=== PATIENT | male | born 1940 | race Caucasian/White ===

== ENCOUNTER 2016-07-04 20:37 | Inpatient (IN) | payer MEDICARE, MEDICAID ==
[~2016-07-04] VITALS: Ht 172.7 cm; Wt 74.8 kg
[~2016-07-04 20:37] MED LIST: ASPI81TA2 PO; CALC500T29 PO; CLOP75TA2 PO; ESOM40CA PO; FENO160T PO; METO-304 PO; OMEG1CAP55 PO; PRAV80TA21 PO; PREG50CA PO; SITA1TAB6 PO; TAMS0.4C34 PO; VALS80TA2 PO
--- NOTE | 2016-07-04 20:48 | NUR ---
DR. DE AWARE PT BS NOTED AT 346.
--- NOTE | 2016-07-04 20:48 | NUR ---
BB FAMILY FOR GENERALIZED WEAKENSS, CONFUSION SINCE HE WOKE UP TODAY. PT AOX3 DANISH SPEAKING, DAUGHTERS AT BEDSIDE FOR TRANSLATION. RR EVEN AND UNLABORED. NO SOB NOTED. NAD NOTE. NO NVD AT THIS TIME. PT GOWNED AND PLACED ON MONITOR.
[2016-07-04] MEDS ORDERED: ACETAMINOPHEN 650 MG/20.3 ML UDC PO ONE (21:00)
[2016-07-04] MEDS ORDERED: ACETAMINOPHEN 650 MG/20.3 ML UDC ONE (21:13)
[2016-07-04 21:20] LABS: CALCIUM, SERUM 8.8 mg/dL (8.5-10.1); CARBON DIOXIDE 23 mmol/L (21-32); CHLORIDE 96 mmol/L (98-107); CREATININE 2.2 mg/dL (0.6-1.3); GLUCOSE 337 mg/dL (74-106); POTASSIUM 4.9 mmol/L (3.5-5.1); SODIUM SERUM 130 mmol/L (136-145); UREA NITROGEN, BLOOD 29 mg/dL (7-18)
[2016-07-04 21:25] LABS: INR 1.08 (0.87-1.13); PROTHROMBIN TIME 11.2 SECS (9.5-12.7)
[2016-07-04 21:26] LABS: ALANINE AMINOTRANSFERASE 13 U/L (12-78); ALBUMIN 2.7 g/dL (3.4-5.0); ALKALINE PHOSPHATASE 34 U/L (46-116); ASPARTATE AMINOTRANSFERASE 18 U/L (15-37); BILIRUBIN,DIRECT 0.1 mg/dL (0.0-0.2); BILIRUBIN,TOTAL 0.4 mg/dL (0.2-1.0); TOTAL PROTEIN, SERUM 7.8 g/dL (6.4-8.2)
[2016-07-04 21:28] LABS: TROPONIN I < 0.017 ng/mL (0.00-0.056)
--- NOTE | 2016-07-04 21:28 | NUR ---
NEMESIO GARCIA AT BEDSIDE FOR EVAL.
[2016-07-04 21:40] LABS: LACTIC ACID 1.5 mmol/L (0.4-2.0)
--- NOTE | 2016-07-04 21:40 | NUR ---
PT ASSIGNED TO TELE BED 109 FOR SEPSIS
--- NOTE | 2016-07-04 21:40 | NUR ---
XRAY AT BEDSIDE
--- NOTE | 2016-07-04 21:45 | NUR ---
URINE COLLECTED. CALLED LAB FOR RETAIL SALES CLERK.
[2016-07-04 21:55] LABS: EOSINOPHILS # (AUTO) 0.3 /CMM (0.0-0.7); EOSINOPHILS % (AUTO) 0.3 % (0.0-6.0); HEMATOCRIT 29 % (39-51); HEMOGLOBIN 8.7 g/dL (13.5-17.5); LYMPHOCYTES # (AUTO) 3.7 /CMM (0.8-4.8); LYMPHOCYTES % (AUTO) 4.2 % (20.0-44.0); MEAN CORPUSCULAR HEMOGLOBIN 27 PG (26.0-33.0); MEAN CORPUSCULAR HGB CONC 30 g/dl (31.0-36.0); MEAN CORPUSCULAR VOLUME 88 fL (80-96); MONOCYTES # (AUTO) 0.5 /CMM (0.1-1.30); MONOCYTES % (AUTO) 0.5 % (2.0-12.0); PLATELET COUNT (AUTO) 77 /CMM (150-450); RDW COEFFICIENT OF VARIATION 17.1 (11.5-15.0); RED BLOOD CELL COUNT(AUTO) 3.27 MIL/uL (4.5-6.0)
[2016-07-04 21:58] LABS: WHITE BLOOD COUNT (AUTO) 89.4 K/uL (4.3-11.0)
[2016-07-04] MEDS ORDERED: PIPERACILLIN /TAZOBACTAM 2.25 G VIAL IV ONE (21:59)
[2016-07-04 22:00] LABS: BAND % (MANUAL) 2 % (0.0-5.0); LYMPHOCYTES % (MANUAL) 9 % (16-48); MONOCYTES % (MANUAL) 3 % (0-11.0); NEUTROPHILS % (MANUAL) 86 (42-76); PLATELET ESTIMATE DECREASED
[2016-07-04] MEDS ORDERED: IV D5W 50 ML IV ONE (22:00)
[2016-07-04] MEDS ORDERED: VANCOMYCIN 1 GM in IV D5W 250 ML IV SCH (22:00)
[2016-07-04] MEDS ORDERED: IV SET PRIMARY PUMP SET 1 EA INFUS.SET MC ONE ×2 (22:00→23:26)
[2016-07-04 22:02] LABS: ANISOCYTOSIS 1+
--- NOTE | 2016-07-04 22:06 | NUR ---
REPORT GIVEN TO BENTLEY/JORDY.
[2016-07-04] MEDS: PIPERACILLIN /TAZOBACTAM 2.25 G in IV D5W 50 ML IV SCH (22:08)
[2016-07-04] MEDS ORDERED: IV NS 0.9% 1,000 ML IV PRN (22:12)
[2016-07-04] MEDS ORDERED: SITA50TA PO (22:14)
[2016-07-04] MEDS ORDERED: CALC-746 PO (22:14)
[2016-07-04] MEDS ORDERED: PREG50CA PO (22:14)
[2016-07-04] MEDS ORDERED: GLIP5TAB21 PO (22:14)
[2016-07-04] MEDS ORDERED: ALEN70TA45 PO (22:14)
[2016-07-04] MEDS ORDERED: ZOLP5TAB7 PO (22:14)
[2016-07-04] MEDS ORDERED: CANA300T PO (22:14)
[2016-07-04] MEDS ORDERED: FENO145T20 PO (22:14)
[2016-07-04] MEDS ORDERED: NIAC-5 PO (22:14)
[2016-07-04 22:15] VITALS: BP 110/47
--- NOTE | 2016-07-04 22:15 | NUR ---
PT TRASNFERED PER ACLS PROTOCOL.
[2016-07-04 22:25] VITALS: BP 110/47
[2016-07-04] MEDS ORDERED: DEXTROSE 50%-WATER 50 ML DISP.SYRIN IV PRN (22:30)
[2016-07-04] MEDS ORDERED: ONDANSETRON HCL/PF 4 MG/2 ML VIAL IVP PRN (22:30)
[2016-07-04] MEDS ORDERED: TEMAZEPAM 15 MG CAPSULE PO PRN (22:30)
[2016-07-04] MEDS ORDERED: MAG HYDROX/AL HYDROX/SIMETH 30 ML UDC PO PRN (22:30)
[2016-07-04] MEDS ORDERED: MAGNESIUM HYDROXIDE 30 ML UDC PO PRN (22:30)
[2016-07-04 22:38] LABS: APPEARANCE,URINE CLEAR (CLEAR); BILIRUBIN,URINE NEGATIVE (NEGATIVE); BLOOD, URINE TRACE Ery/uL (NEGATIVE); COLOR,URINE YELLOW (YELLOW); KETONES,URINE NEGATIVE (NEGATIVE); LEUKOCYTE ESTERASE ,URINE NEGATIVE (NEGATIVE); NITRITE, URINE NEGATIVE (NEGATIVE); PH,URINE 5.5 (5.0-8.0); PROTEIN,URINE TRACE mg/dl (NEGATIVE); UGLUCOSE 3+ mg/dL (NEGATIVE); UROBILINOGEN,URINE 0.2 EU/dL (0.2)
[2016-07-04 22:44] LABS: ADD URINE CULTURE YES; SQUAMOUS EPITHELIAL CELL,UR Few /HPF (None Seen); WBC,URINE 15-20 /HPF (0-3); YEAST,URINE Moderate /HPF (None Seen)
[2016-07-04 22:45] LABS: MUCUS,URINE Few /LPF (None Seen)
[2016-07-04 22:46] LABS: BACTERIA,URINE 1+ /HPF (None Seen)
--- NOTE | 2016-07-04 23:19 | NUR ---
HOGSHEAD STRIPPER NOTE ADMITTED 76 YEARS OLD MALE PT FROM ER WITH THE DX OF [facility] ACQUIRED BY NEMESIO FREEMAN. A/O X 3 ROMANSH SPEAKING. CONFUSED AT TIME. DTR PROVIDED THE HX. NO SOB, NO DISTRESS OR DISCOMFORT NOTED. DENIES PAIN. ON TELE V PACING HR 88 . H/L RT WRIST # 18 G INTACT AND PATENT. ADMITTING ORDERS CHECKED. DTR AT BED SIDE TRANSLATED TO THE PT. SKIN ASSESSMENT DONE. PICTURES TAKEN AND PLACE THEM IN THE CHART. VSS. SIDE RAILS UP X 2 AND CALL LIGHT WITHIN REACH. CONTINUE TO MONITOR HIM.
[2016-07-04] MEDS ORDERED: VANCOMYCIN 1 GM VIAL ONE (23:25)
[2016-07-04] MEDS ORDERED: IV NS 0.9% 1,000 ML ONE (23:26)
[2016-07-04] MEDS ORDERED: SECONDARY IV SET 1 EA INFUS.SET MC ONE (23:26)
[2016-07-04] MEDS ORDERED: IV D5W 250 ML IV ONE (23:26)
[2016-07-05] VITALS: BP 111/42
[2016-07-05] MEDS ORDERED: PIPERACILLIN /TAZOBACTAM 2.25 G in IV D5W 50 ML IV SCH ×2
[2016-07-05] MEDS: INSULIN REGULAR, HUMAN 100 UNIT/ML 3 ML VIAL SQ PRN ×4 (00:45→22:15)
--- NOTE | 2016-07-05 00:50 | NUR ---
DOG CATCHER NOTE CHEMICAL PREPARER LYDIA INFORMED THAT PT BS WAS HIGH IN ER AND NO INSULIN GIVEN. LYDIA CHEMICAL PREPARER GAVE ORDER TO CHECK NOW AND COVER WITH HUMULIN R INSULIN PER SLIDING SCALE. BS CHECKED 396, 10 UNITS OF HUMULIN R INSULIN SQ GIVEN.
[2016-07-05 04:00] VITALS: BP 98/51
[2016-07-05] MEDS ORDERED: PIPERACILLIN /TAZOBACTAM 2.25 G VIAL IV ONE (04:31)
[2016-07-05] MEDS ORDERED: IV D5W 50 ML IV ONE (04:32)
[2016-07-05] MEDS ORDERED: SECONDARY IV SET 1 EA INFUS.SET MC ONE (04:32)
[2016-07-05] MEDS: PIPERACILLIN /TAZOBACTAM 2.25 G in IV D5W 50 ML IV SCH ×4 (05:12→23:27)
[2016-07-05] MEDS: BLOOD SUGAR DIAGNOSTIC 1 EACH STRIP IN SCH ×4 (05:39→22:13)
--- NOTE | 2016-07-05 05:45 | NUR ---
MS RN NOTE BLOODSUGAR 128, NO INSULIN COVERAGE GIVEN. ALSO ZOSYN 2.25 G IV ATB GIVEN ORDERED. PT IN NO DISTRESS OR DISCOMFORT.
--- NOTE | 2016-07-05 06:36 | NUR ---
MOTO MIX OPERATOR NOTE PT IN BED ASLEEP, AROUSABLE. NO DISTRESS OR DISCOMFORT NOTED. DENIES PAIN. ON TELE V PACING HR 89. DTR AT BED SIDE. SIDE RAILS UP X 2 AND CALL LIGHT WITHIN REACH. WILL ENDORSE TO DAY SHIFT NURSE FOR CONTINUE TO CARE.
[2016-07-05 06:39] LABS: HEMATOCRIT 29 % (39-51); HEMOGLOBIN 8.9 g/dL (13.5-17.5); LYMPHOCYTES # (AUTO) 4.2 /CMM (0.8-4.8); LYMPHOCYTES % (AUTO) 5.5 % (20.0-44.0); MEAN CORPUSCULAR HEMOGLOBIN 27 PG (26.0-33.0); MEAN CORPUSCULAR HGB CONC 31 g/dl (31.0-36.0); MEAN CORPUSCULAR VOLUME 88 fL (80-96); MONOCYTES # (AUTO) 0.1 /CMM (0.1-1.30); MONOCYTES % (AUTO) 0.1 % (2.0-12.0); NEUTROPHILS # (AUTO) 72.4 /CMM (1.8-8.9); NEUTROPHILS % (AUTO) 94.4 % (43.0-81.0); PLATELET COUNT (AUTO) 87 /CMM (150-450); RDW COEFFICIENT OF VARIATION 16.6 (11.5-15.0); RED BLOOD CELL COUNT(AUTO) 3.29 MIL/uL (4.5-6.0)
[2016-07-05 06:51] LABS: ALBUMIN 2.6 g/dL (3.4-5.0); BILIRUBIN,DIRECT 0.1 mg/dL (0.0-0.2); BILIRUBIN,TOTAL 0.4 mg/dL (0.2-1.0); CALCIUM, SERUM 8.8 mg/dL (8.5-10.1); MAGNESIUM 2.4 mg/dL (1.8-2.4); PHOSPHORUS 3.6 mg/dL (2.5-4.9); POTASSIUM 3.8 mmol/L (3.5-5.1); TOTAL PROTEIN, SERUM 7.7 g/dL (6.4-8.2)
[2016-07-05 06:55] LABS: WHITE BLOOD COUNT (AUTO) 76.7 K/uL (4.3-11.0)
--- NOTE | 2016-07-05 07:00 | NUR ---
COUNTY ATTORNEY NOTE TAPPING MACHINE OPERATOR AUTOMATIC SANDRA GAVE CRITICAL LAB RESULT OF WBC 76.7 FROM 89.4. ENDORSE TO DAY SHIFT NURSE TO F/U.
[2016-07-05 07:06] LABS: THYROID STIMULATING HORMONE 1.763 uIU/mL (0.358-3.74)
--- NOTE | 2016-07-05 07:10 | NUR ---
RN INITIAL NOTE RECEIVED PT FROM PM NURSE. PT A/O X2 PERSIAN SPEAKING. PT ON 2L NC NO C/O ACUTE SOB. IV R WRIST FLUSHED, PATENT AND INTACT#18G NS @ 75 ML/HR. WILL CONTINUE TO MONITOR CLOSELY. PT WARM CLEAN AND DRY. DAUGHTER @ BEDSIDE.
[2016-07-05 08:00] VITALS: BP_SYST 121; BP_SYST 140; BP_SYST 98; BP_DIAS 49; BP_DIAS 51; BP_DIAS 59
[2016-07-05] MEDS ORDERED: FEE PK DOSING 1 MIN EA MC ONE (08:38)
[2016-07-05] MEDS: TAMSULOSIN 0.4 MG CAP.SR.24H PO SCH (08:55)
[2016-07-05] MEDS: PANTOPRAZOLE 40 MG TABLET.DR PO SCH (08:56)
[2016-07-05] MEDS: CALCIUM CARBONATE (1250) 500 MG TABLET PO SCH ×3 (08:56→17:01)
[2016-07-05] MEDS: METOPROLOL SUCCINATE 50 MG TAB.SR.24H PO SCH (08:57)
[2016-07-05] MEDS ORDERED: NIACIN 250 MG TABLET.SA PO SCH (09:00)
[2016-07-05] MEDS ORDERED: CLOPIDOGREL BISULFATE 75 MG TABLET PO SCH (09:00)
[2016-07-05] MEDS ORDERED: FENOFIBRATE NANOCRYS (145 MG) 145 MG TABLET PO SCH (09:00)
[2016-07-05] MEDS ORDERED: VALSARTAN 80 MG TABLET PO SCH (09:00)
[2016-07-05] MEDS ORDERED: ASPIRIN 81 MG TAB.CHEW PO SCH (09:00)
[2016-07-05 09:26] LABS: BAND % (MANUAL) 7 % (0.0-5.0); BLASTS, MANUAL % 2 % (0-0); LYMPHOCYTES % (MANUAL) 5 % (16-48); METAMYELOCYTES % 2 % (0-0); MONOCYTES % (MANUAL) 1 % (0-11.0); MYELOCYTES % 1 % (0-0)
[2016-07-05 09:28] LABS: ANISOCYTOSIS 2+; PLATELET ESTIMATE DECREASED
[2016-07-05 09:29] LABS: NEUTROPHILS % (MANUAL) 82 (42-76)
[2016-07-05 10:52] LABS: IRON, SERUM 24 ug/dl (50-175); TOTAL IRON BINDING CAPACITY 368 ug/dl (250-450)
[2016-07-05 10:56] LABS: TROPONIN I < 0.017 ng/mL (0.00-0.056)
[2016-07-05 11:24] LABS: FERRITIN 57 ng/mL (8-388); THYROID STIMULATING HORMONE 1.849 uIU/mL (0.358-3.74)
[2016-07-05] MEDS ORDERED: BUMETANIDE INJ 0.25 MG/ML VIAL IV ONE (12:30)
[2016-07-05 14:41] VITALS: BP 121/49
--- NOTE | 2016-07-05 15:49 | NUR ---
RN NOTE SPOKE TO DR. REYNOLDS DAUGHTER ADIA VASQUEZ WANTS PT TO BE PLACE ON DNR DNI CODE STATUS. POLST WITNESSED WITH RASHAWN KIM RN AND FORM PLACED IN CHART. DR. REYNOLDS WILL CHANGE STATUS IN COMPUTER.
[2016-07-05 16:00] VITALS: BP 105/56
[2016-07-05 16:13] LABS: URIC ACID 5.4 mg/dL (2.6-7.2)
[2016-07-05] MEDS: HYDROXYUREA 500 MG CAPSULE PO SCH (17:01)
[2016-07-05] MEDS: ALLOPURINOL 100 MG TABLET PO SCH (17:01)
--- NOTE | 2016-07-05 17:23 | NUR ---
RN NOTE CALLED PHARMACY SCANNED MEDICATION AND IT DID NOT REGISTER HAD TO MANUALLY ENTER VERIED MEDICATION AND DOSE.
[2016-07-05] MEDS ORDERED: Z GUARD REMEDY 2 OZ OINT TP PRN (18:00)
[2016-07-05 18:29] LABS: INR 1.04 (0.87-1.13); PROTHROMBIN TIME 11.2 SECS (9.5-12.7)
[2016-07-05 18:39] LABS: D-DIMER 2.45 mg/L(FEU (0.17-0.50)
--- NOTE | 2016-07-05 19:38 | NUR ---
MS RN NOTE PT IN BED A/A/O X 2, SLOW TO RESPONDS, FRISIAN SPEAKING. NO SOB, NO DISTRESS OR DISCOMFORT NOTED. DENIES PAIN. H/L RT WRIST #18 G INTACT AND PATENT. NO S/S OF INFILTRATION NOTED. DTR AND FAMILY AT BED SIDE. SIDE RAILS UP X 2 AND CALL LIGHT WITHIN REACH. VSS. CONTINUE TO MONITOR HIM.
[2016-07-05 20:00] VITALS: BP 104/44
--- NOTE | 2016-07-05 20:53 | NUR ---
MS RN NOTE NOTED DR MARQUEZ WROTE IN HIS NOTED TO HUMBERTO DOLAN BUT ORDER WAS NOT DC'D. CALL YVON GAYTAN AND INFORMED HIM. ACCORDING TO YVON DOLAN PER DR MARQUEZ. ORDER DC'D AND ALSO INFORMED CHARGE NURSE REGARDING THE CHANGE.
[2016-07-05] MEDS ORDERED: VANCOMYCIN 1 GM in IV D5W 250 ML IV SCH (22:00)
[2016-07-05] MEDS ORDERED: ATORVASTATIN 10 MG TABLET PO SCH (22:00)
[2016-07-05] MEDS ORDERED: IV SET PRIMARY PUMP SET 1 EA INFUS.SET MC ONE (23:22)
[2016-07-05] MEDS ORDERED: IV NS 0.9% 250 ML IV ONE (23:23)
[2016-07-06 04:00] VITALS: BP 101/55
[2016-07-06] MEDS: PIPERACILLIN /TAZOBACTAM 2.25 G in IV D5W 50 ML IV SCH ×4 (05:06→23:55)
[2016-07-06] MEDS: BLOOD SUGAR DIAGNOSTIC 1 EACH STRIP IN SCH ×4 (05:46→22:03)
[2016-07-06] MEDS: INSULIN REGULAR, HUMAN 100 UNIT/ML 3 ML VIAL SQ PRN ×4 (05:56→22:06)
[2016-07-06 06:00] VITALS: BP 101/55
[2016-07-06 06:09] LABS: IMMUNOGLOBULIN A, SERUM 1734 mg/dL (61-437); IMMUNOGLOBULIN G, SERUM 406 mg/dL (700-1600)
[2016-07-06 06:43] LABS: EOSINOPHILS # (AUTO) 0.1 /CMM (0.0-0.7); EOSINOPHILS % (AUTO) 0.2 % (0.0-6.0); HEMATOCRIT 29 % (39-51); HEMOGLOBIN 8.8 g/dL (13.5-17.5); LYMPHOCYTES # (AUTO) 3.5 /CMM (0.8-4.8); LYMPHOCYTES % (AUTO) 5.2 % (20.0-44.0); MEAN CORPUSCULAR HEMOGLOBIN 27 PG (26.0-33.0); MEAN CORPUSCULAR HGB CONC 31 g/dl (31.0-36.0); MEAN CORPUSCULAR VOLUME 88 fL (80-96); MONOCYTES # (AUTO) 0.2 /CMM (0.1-1.30); MONOCYTES % (AUTO) 0.3 % (2.0-12.0); NEUTROPHILS # (AUTO) 64.1 /CMM (1.8-8.9); NEUTROPHILS % (AUTO) 94.3 % (43.0-81.0); PLATELET COUNT (AUTO) 71 /CMM (150-450); RDW COEFFICIENT OF VARIATION 16.6 (11.5-15.0); RED BLOOD CELL COUNT(AUTO) 3.27 MIL/uL (4.5-6.0)
--- NOTE | 2016-07-06 06:46 | NUR ---
MS RN NOTE PT IN BED ASLEEP, NO DISTRESS OR DISCOMFORT NOTED. DENIES PAIN. H/L INTACT AND PATENT. SIDE RAILS UP X 2 AND CALL LIGHT WITHIN REACH. DTR AT BED SIDE. WILL ENDORSE TO DAY SHIFT NURSE FOR CONTINUE TO MONITOR.
[2016-07-06 07:12] LABS: ALBUMIN 2.4 g/dL (3.4-5.0); BILIRUBIN,TOTAL 0.4 mg/dL (0.2-1.0); CALCIUM, SERUM 9.3 mg/dL (8.5-10.1); CREATININE 2.1 mg/dL (0.6-1.3); MAGNESIUM 2.2 mg/dL (1.8-2.4); PHOSPHORUS 4.8 mg/dL (2.5-4.9); POTASSIUM 4.2 mmol/L (3.5-5.1); TOTAL PROTEIN, SERUM 7.6 g/dL (6.4-8.2)
--- NOTE | 2016-07-06 07:15 | NUR ---
RN INITIAL NOTES: Rec'd pt asleep on bed,not in any distress, easily arousable. Pt on O2 at2lpm/NC, not on any respiratory distress. Pt has R wrist G 18, SL, flushed, patent & intact w/ no signs of infection/ infiltration noted. Provided comfort & safety measures. Bed kept low & in locked position. Call light placed w/in reach. Will continue to monitor.
[2016-07-06 07:53] LABS: BAND % (MANUAL) 6 % (0.0-5.0); EOSINOPHILS % (MANUAL) 1 % (0-4); LYMPHOCYTES % (MANUAL) 7 % (16-48); METAMYELOCYTES % 1 % (0-0); MONOCYTES % (MANUAL) 1 % (0-11.0); NEUTROPHILS % (MANUAL) 84 (42-76)
[2016-07-06 07:54] LABS: HYPOCHROMASIA 2+; PLATELET ESTIMATE DECREASED
[2016-07-06 08:00] VITALS: BP 137/58
[2016-07-06 08:10] LABS: IMMUNOGLOBULIN M, SERUM 22 mg/dL (15-143)
[2016-07-06] MEDS: ALLOPURINOL 100 MG TABLET PO SCH ×3 (08:17→17:53)
[2016-07-06] MEDS: CALCIUM CARBONATE (1250) 500 MG TABLET PO SCH ×3 (08:17→17:53)
[2016-07-06] MEDS: PANTOPRAZOLE 40 MG TABLET.DR PO SCH (08:17)
[2016-07-06] MEDS: TAMSULOSIN 0.4 MG CAP.SR.24H PO SCH (08:17)
[2016-07-06] MEDS: HYDROXYUREA 500 MG CAPSULE PO SCH (08:17)
[2016-07-06] MEDS: METOPROLOL SUCCINATE 50 MG TAB.SR.24H PO SCH (08:27)
--- NOTE | 2016-07-06 10:00 | NUR ---
RN NOTES: Pt seen & examined by w/orders & carried out.
[2016-07-06] MEDS ORDERED: BUMETANIDE INJ 16 MG in IV NS 0.9% 16 ML IV ONE (11:30)
[2016-07-06 12:25] LABS: *SPE A/G RATIO 0.8 (0.7-1.7); *SPE ALPHA-1-GLOBULIN 0.3 g/dL (0.0-0.4); *SPE ALPHA-2-GLOBULIN 0.9 g/dL (0.4-1.0); *SPE BETA GLOBULIN 0.7 g/dL (0.7-1.3); *SPE GLOBULIN, TOTAL 3.9 g/dL (2.2-3.9); *SPE M-SPIKE 1.4 g/dL (Not Observed); *SPE PROTEIN TOTAL 6.9 g/dL (6.0-8.5); *SPEGAMMA GLOBULIN 2.1 g/dL (0.4-1.8)
[2016-07-06] MEDS ORDERED: SECONDARY IV SET 1 EA INFUS.SET MC ONE (13:53)
[2016-07-06 16:00] VITALS: BP 109/43
[2016-07-06] MEDS ORDERED: BISACODYL SUPP (10 MG) 10 MG/SUPP.RECT SUPP.RECT RC PRN (16:30)
[2016-07-06] MEDS ORDERED: POLYETHYLENE GLYCOL 3350 17 GM POWD.PACK PO PRN (16:30)
[2016-07-06 17:18] LABS: FREE LAMBDA LT CHAIN SERUM 15.86 mg/L (5.71-26.30)
--- NOTE | 2016-07-06 17:45 | NUR ---
RN NOTES: Pt seen & examined by Dr. Anderson w/ orders & carried out.
[2016-07-06] MEDS: NYSTATIN TOP POWDER 15 GM BOTTLE TP SCH (17:52)
[2016-07-06] MEDS: ACETAMINOPHEN 325 MG TABLET PO PRN (18:07)
[2016-07-06] MEDS ORDERED: HYDROXYUREA 500 MG CAPSULE PO ONE (18:30)
[2016-07-06] MEDS ORDERED: GUAIFENESIN/D-METHORPHAN HB 5 ML UDC PO PRN (19:00)
--- NOTE | 2016-07-06 19:19 | NUR ---
RN CLOSING NOTES: No acute changes noted w/in shift. No SOB, LOC noted. R wrist G 18, kept patent & intact w/ no signs of infection/ infiltration noted. Kept well rested. Needs attended. Bed kept low & in locked position. Call light placed w/in reach. Endorsed to PM RN for NIURKA.
[2016-07-06 20:00] VITALS: BP_SYST 98; BP_DIAS 47; BP_DIAS 48
[2016-07-07 04:00] VITALS: BP 100/45
[2016-07-07] MEDS ORDERED: IV NS 0.9% 250 ML IV ONE (05:21)
[2016-07-07] MEDS ORDERED: SECONDARY IV SET 1 EA INFUS.SET MC ONE (05:25)
[2016-07-07] MEDS: PIPERACILLIN /TAZOBACTAM 2.25 G in IV D5W 50 ML IV SCH ×3 (06:03→17:43)
[2016-07-07] MEDS: BLOOD SUGAR DIAGNOSTIC 1 EACH STRIP IN SCH ×5 (06:36→21:16)
[2016-07-07 06:37] LABS: BASOPHILS % (AUTO) 0.1 % (0.0-2.0); EOSINOPHILS # (AUTO) 0.2 /CMM (0.0-0.7); EOSINOPHILS % (AUTO) 0.4 % (0.0-6.0); HEMATOCRIT 30 % (39-51); HEMOGLOBIN 9.5 g/dL (13.5-17.5); LYMPHOCYTES # (AUTO) 2.2 /CMM (0.8-4.8); LYMPHOCYTES % (AUTO) 4.6 % (20.0-44.0); MEAN CORPUSCULAR HEMOGLOBIN 27 PG (26.0-33.0); MEAN CORPUSCULAR HGB CONC 31 g/dl (31.0-36.0); MEAN CORPUSCULAR VOLUME 87 fL (80-96); MONOCYTES % (AUTO) 0.1 % (2.0-12.0); NEUTROPHILS # (AUTO) 45.5 /CMM (1.8-8.9); NEUTROPHILS % (AUTO) 94.8 % (43.0-81.0); PLATELET COUNT (AUTO) 94 /CMM (150-450); RDW COEFFICIENT OF VARIATION 16.8 (11.5-15.0)
[2016-07-07] MEDS: INSULIN REGULAR, HUMAN 100 UNIT/ML 3 ML VIAL SQ PRN ×3 (06:39→18:12)
--- NOTE | 2016-07-07 06:41 | NUR ---
MS-1/AMBER POC GLUCOSE 432 10 UNITS INSULIN GIVEN PER SLIDING SCALE. YVON GODOY NOTIFIED. ORDERS TO RECHECK POC GLUCOSE IN 2 HOURS. WILL INDORSE TO DAYSHIFT. WILL CONTINUE TO MONITOR. Addendum: 07/07/16 at 2041 by SMILEY LYON LVN PT FAMILY NONCOMPLIANT WITH RECOMMENDED DIET ORDERS. FEEDING PT OUTSIDE FOOD. YVON GODOY MADE AWARE.
[2016-07-07 06:51] LABS: CALCIUM, SERUM 9.4 mg/dL (8.5-10.1); CREATININE 2.9 mg/dL (0.6-1.3); MAGNESIUM 2.4 mg/dL (1.8-2.4); PHOSPHORUS 7.2 mg/dL (2.5-4.9); POTASSIUM 4.2 mmol/L (3.5-5.1)
--- NOTE | 2016-07-07 07:15 | NUR ---
RN INITIAL NOTES: Rec'd pt awake on bed, not in any distress, A/O x 2. Pt on room air, denies SOB, saturating at 95%. Pt has R wrist G 18, SL, flushed, patent & intact w/ no signs of infection/ infiltration noted. Provided comfort & safety measures. Bed kept low & in locked position. Call light placed w/in reach. Daughter at bedside. Will continue to monitor.
[2016-07-07 08:00] VITALS: BP 109/56
--- NOTE | 2016-07-07 08:45 | NUR ---
RN NOTES: Accucheck done as ordered, 386 mg/dL. Insulin 10 units was given at 0730H. Instructed pt's family about pt's diet, verbalized understanding.
[2016-07-07] MEDS: CALCIUM CARBONATE (1250) 500 MG TABLET PO SCH ×3 (08:48→17:43)
[2016-07-07] MEDS: TAMSULOSIN 0.4 MG CAP.SR.24H PO SCH (08:48)
[2016-07-07] MEDS: PANTOPRAZOLE 40 MG TABLET.DR PO SCH (08:49)
[2016-07-07] MEDS: ALLOPURINOL 100 MG TABLET PO SCH ×3 (08:49→17:43)
[2016-07-07] MEDS: METOPROLOL SUCCINATE 50 MG TAB.SR.24H PO SCH (08:49)
[2016-07-07] MEDS: NYSTATIN TOP POWDER 15 GM BOTTLE TP SCH ×2 (08:50→17:44)
[2016-07-07] MEDS: HYDROXYUREA 500 MG CAPSULE PO SCH (09:00)
[2016-07-07] MEDS ORDERED: HYDROXYUREA 500 MG CAPSULE PO SCH (09:00)
[2016-07-07 09:17] LABS: LYMPHOCYTES % (MANUAL) 4 % (16-48); MONOCYTES % (MANUAL) 2 % (0-11.0); NEUTROPHILS % (MANUAL) 94 (42-76); PLATELET ESTIMATE DECREASED
[2016-07-07 09:18] LABS: ANISOCYTOSIS 1+
--- NOTE | 2016-07-07 10:41 | NUR ---
RN NOTES: Pt was seen & examined by Dr. Castro w/ no orders noted.
--- NOTE | 2016-07-07 12:00 | NUR ---
RN NOTES: Accucheck 498 mg/dL referred to Dr. Reaves w/ orders to give 10 units insulin HR now & then change mild sliding scale to aggressive sliding scale.
[2016-07-07] MEDS ORDERED: DEXTROSE 50%-WATER 50 ML DISP.SYRIN IV PRN (12:30)
[2016-07-07 16:00] VITALS: BP_SYST 109; BP_SYST 132; BP_DIAS 33; BP_DIAS 51
[2016-07-07] MEDS ORDERED: INSULIN DETEMIR 100 UNIT/ML CARTRIDGE SQ ONE (18:00)
--- NOTE | 2016-07-07 18:00 | NUR ---
RN NOTES: Accucheck 522 mg/dL, made aware w/ orders to give Humulin R 20 units per sliding scale + Levemir 30 units SQ now dose & then schedule/routine Levemir to 30 units SQ at HS. Family made aware.
--- NOTE | 2016-07-07 19:48 | NUR ---
RN CLOSING NOTES: Educated pt's family regarding pt's blood sugar & reinforced teaching about pt's diet. Family verbalized understanding. Pt resting comfortably, not in any distress/ pain. R wrist G 18, kept patent & intact w/ no signs of infection/ infiltration noted. Needs attended. Bed kept low & in locked position. Call light placed w/in reach. Endorsed to PM RN for NIURKA.
[2016-07-07 20:00] VITALS: BP 108/57
--- NOTE | 2016-07-07 20:06 | NUR ---
RN NOTES RECEIVED PT ASLEEP IN BED, ABLE TO AWAKE AFEW MINUTES LATER, ASSESSED PT HEAD TO TOE, KEPT CLEAN AND DRY, DENIES ANY SOB OR PAIN, FAMILY AT BED SIDE ,ASSISTING PT WITH ADLS
[2016-07-07] MEDS: *INSULIN REGULAR(HUMULIN R)HUM 100 UNIT/ML VIAL SQ PRN (21:24)
[2016-07-08] MEDS: PIPERACILLIN /TAZOBACTAM 2.25 G in IV D5W 50 ML IV SCH ×5 (00:39→23:47)
[2016-07-08 04:00] VITALS: BP 123/54
[2016-07-08] MEDS ORDERED: IV NS 0.9% 250 ML IV ONE (05:19)
[2016-07-08] MEDS: BLOOD SUGAR DIAGNOSTIC 1 EACH STRIP IN SCH ×4 (06:42→21:29)
[2016-07-08] MEDS: INSULIN REGULAR, HUMAN 100 UNIT/ML 3 ML VIAL SQ PRN ×3 (06:45→18:26)
[2016-07-08 06:47] LABS: EOSINOPHILS # (AUTO) 0.3 /CMM (0.0-0.7); HEMATOCRIT 29 % (39-51); HEMOGLOBIN 9.3 g/dL (13.5-17.5); LYMPHOCYTES # (AUTO) 1.6 /CMM (0.8-4.8); LYMPHOCYTES % (AUTO) 5.5 % (20.0-44.0); MEAN CORPUSCULAR HEMOGLOBIN 28 PG (26.0-33.0); MEAN CORPUSCULAR HGB CONC 32 g/dl (31.0-36.0); MEAN CORPUSCULAR VOLUME 86 fL (80-96); MONOCYTES % (AUTO) 0.1 % (2.0-12.0); NEUTROPHILS # (AUTO) 27.6 /CMM (1.8-8.9); NEUTROPHILS % (AUTO) 93.4 % (43.0-81.0); PLATELET COUNT (AUTO) 88 /CMM (150-450); RED BLOOD CELL COUNT(AUTO) 3.35 MIL/uL (4.5-6.0); WHITE BLOOD COUNT (AUTO) 29.5 K/uL (4.3-11.0)
--- NOTE | 2016-07-08 07:05 | NUR ---
RN NOTES 2120PM BLOOD SUGAR HIGH,10 UNITS GIVEN, RECHECKED 15 MINUTES LATER BLOOD DECREASE TO 390 PT C/O OF NAUSEA ZOFRAN 4MG IV GIVE EFFECTIVE,MD MADE AWARE OF BLOOD SUGAR RESULT WITH NO NEW ORDERS AND TO CONTINUE TO MONITOR.,0700AM BLOOD SUGAR 314 WITH 16 UNIT OF REGULAR GIVEN,AM CHARGE NURSE AWARE AND WILL CONT.TO MONITOR PT.AOX3 AT THIS TIME.
[2016-07-08 07:20] LABS: CALCIUM, SERUM 8.8 mg/dL (8.5-10.1); CREATININE 2.8 mg/dL (0.6-1.3); MAGNESIUM 2.6 mg/dL (1.8-2.4); PHOSPHORUS 7.7 mg/dL (2.5-4.9); POTASSIUM 4.4 mmol/L (3.5-5.1)
[2016-07-08 07:34] LABS: ANISOCYTOSIS 1+; EOSINOPHILS % (MANUAL) 1 % (0-4); LYMPHOCYTES % (MANUAL) 6 % (16-48); MONOCYTES % (MANUAL) 2 % (0-11.0); NEUTROPHILS % (MANUAL) 91 (42-76); PLATELET ESTIMATE DECREASED
[2016-07-08] MEDS: TAMSULOSIN 0.4 MG CAP.SR.24H PO SCH (08:21)
[2016-07-08] MEDS: ALLOPURINOL 100 MG TABLET PO SCH ×3 (08:21→17:00)
[2016-07-08] MEDS: PANTOPRAZOLE 40 MG TABLET.DR PO SCH (08:21)
[2016-07-08] MEDS: CALCIUM CARBONATE (1250) 500 MG TABLET PO SCH ×3 (08:21→17:00)
[2016-07-08] MEDS: HYDROXYUREA 500 MG CAPSULE PO SCH (09:00)
[2016-07-08] MEDS: METOPROLOL SUCCINATE 50 MG TAB.SR.24H PO SCH (09:00)
[2016-07-08] MEDS: NYSTATIN TOP POWDER 15 GM BOTTLE TP SCH ×2 (09:00→17:00)
[2016-07-08 09:16] LABS: CREATININE, URINE 64.8 MG/DL (30.0-125.0); URINE TOTAL PROTEIN 54.6 mg/dL (0-11.9)
[2016-07-08] MEDS ORDERED: Magnesium 1GM/D5W 100ML PREMIX 100 ML IV SCH (10:07)
--- NOTE | 2016-07-08 11:14 | NUR ---
AGNES HELD THIS AM FOR B/P=104/41...RECHECKED AT 1110 B/P=111/54....FAMILY REQUEST TO HOLD....WILL CONTINUE TO CHECK
[2016-07-08 11:23] LABS: APPEARANCE,URINE CLEAR (CLEAR); BILIRUBIN,URINE NEGATIVE (NEGATIVE); BLOOD, URINE NEGATIVE Ery/uL (NEGATIVE); COLOR,URINE YELLOW (YELLOW); KETONES,URINE NEGATIVE (NEGATIVE); LEUKOCYTE ESTERASE ,URINE NEGATIVE (NEGATIVE); NITRITE, URINE NEGATIVE (NEGATIVE); PROTEIN,URINE TRACE mg/dl (NEGATIVE); UGLUCOSE 3+ mg/dL (NEGATIVE); UROBILINOGEN,URINE 0.2 EU/dL (0.2)
[2016-07-08 12:00] VITALS: BP 99/45
[2016-07-08] MEDS: AMIODARONE HCL 200 MG TABLET PO SCH ×2 (12:55→20:34)
[2016-07-08 13:55] LABS: ADD URINE CULTURE NO; BACTERIA,URINE None seen /HPF (None Seen); CLINITEST,URINE 1%; RBC,URINE NONE SEEN /HPF (0-2); SQUAMOUS EPITHELIAL CELL,UR Few /HPF (None Seen); WBC,URINE 0-2 /HPF (0-3)
[2016-07-08 13:58] LABS: EOSINOPHIL,URINE None Seen
[2016-07-08] MEDS: ACETAMINOPHEN 325 MG TABLET PO PRN (16:17)
--- NOTE | 2016-07-08 18:19 | NUR ---
pt sleeping during 1699 med pass....daughter at bedside requesting not to given, to give later as " my dad just fell aslee and I dont want to wake him up at this atime"
[2016-07-08 20:00] VITALS: BP 109/52
[2016-07-08 20:18] VITALS: BP 113/59
[2016-07-08 20:29] VITALS: BP 109/52
[2016-07-08] MEDS: *INSULIN REGULAR(HUMULIN R)HUM 100 UNIT/ML VIAL SQ PRN (21:33)
[2016-07-08] MEDS ORDERED: INSULIN DETEMIR 100 UNIT/ML CARTRIDGE SQ SCH (22:00)
[2016-07-09] VITALS: BP 110/40
[2016-07-09 00:41] VITALS: BP 110/40
[2016-07-09 04:00] VITALS: BP 97/47
[2016-07-09 04:30] VITALS: BP 97/47
[2016-07-09 06:34] LABS: EOSINOPHILS # (AUTO) 0.1 /CMM (0.0-0.7); EOSINOPHILS % (AUTO) 0.5 % (0.0-6.0); HEMATOCRIT 26 % (39-51); HEMOGLOBIN 8.4 g/dL (13.5-17.5); LYMPHOCYTES # (AUTO) 1.2 /CMM (0.8-4.8); LYMPHOCYTES % (AUTO) 8.3 % (20.0-44.0); MEAN CORPUSCULAR HEMOGLOBIN 28 PG (26.0-33.0); MEAN CORPUSCULAR HGB CONC 33 g/dl (31.0-36.0); MEAN CORPUSCULAR VOLUME 85 fL (80-96); MONOCYTES % (AUTO) 0.2 % (2.0-12.0); NEUTROPHILS # (AUTO) 12.8 /CMM (1.8-8.9); PLATELET COUNT (AUTO) 75 /CMM (150-450); RDW COEFFICIENT OF VARIATION 15.8 (11.5-15.0); RED BLOOD CELL COUNT(AUTO) 3.06 MIL/uL (4.5-6.0)
[2016-07-09] MEDS: PIPERACILLIN /TAZOBACTAM 2.25 G in IV D5W 50 ML IV SCH ×2 (06:36→13:32)
--- NOTE | 2016-07-09 06:58 | NUR ---
PT IN BED ALL NIGHT, DENIES ANY PAIN OR DISCOMFORT,VSS,AFEBRILE,NO BM, CONTINUE WITH ANTIBIOTICS,DAUGHTER AT BEDSIDE ASSISTING WITH ALL NEEDS.UNEVENTFUL NIGHT,PT SLEPT MOST THE NIGHT.
[2016-07-09 07:19] LABS: ALBUMIN 2.3 g/dL (3.4-5.0); BILIRUBIN,TOTAL 0.3 mg/dL (0.2-1.0); CALCIUM, SERUM 8.4 mg/dL (8.5-10.1); CREATININE 2.5 mg/dL (0.6-1.3); MAGNESIUM 2.6 mg/dL (1.8-2.4); PHOSPHORUS 6.4 mg/dL (2.5-4.9); POTASSIUM 4.3 mmol/L (3.5-5.1); TOTAL PROTEIN, SERUM 7.6 g/dL (6.4-8.2)
[2016-07-09 07:20] LABS: BAND % (MANUAL) 6 % (0.0-5.0); EOSINOPHILS % (MANUAL) 1 % (0-4); LYMPHOCYTES % (MANUAL) 9 % (16-48); MONOCYTES % (MANUAL) 1 % (0-11.0); NEUTROPHILS % (MANUAL) 83 (42-76); PLATELET ESTIMATE DECREASED
[2016-07-09 07:21] LABS: ANISOCYTOSIS 1+; HYPOCHROMASIA 1+
--- NOTE | 2016-07-09 07:30 | NUR ---
received pt. alert and oriented x2,swedish speaking.dtr. at bedside.
[2016-07-09 08:00] VITALS: BP 127/56
[2016-07-09] MEDS: BLOOD SUGAR DIAGNOSTIC 1 EACH STRIP IN SCH ×2 (08:04→12:05)
[2016-07-09] MEDS: INSULIN REGULAR, HUMAN 100 UNIT/ML 3 ML VIAL SQ PRN ×2 (08:13→13:26)
--- NOTE | 2016-07-09 10:14 | NUR ---
DTR. REFUSING MEDS AT NORMAL TIME IN AM.WANTS PT. TO SLEEP.
[2016-07-09] MEDS: HYDROXYUREA 500 MG CAPSULE PO SCH (11:09)
[2016-07-09] MEDS: METOPROLOL SUCCINATE 50 MG TAB.SR.24H PO SCH (11:11)
[2016-07-09 11:12] VITALS: BP 127/56
[2016-07-09] MEDS: AMIODARONE HCL 200 MG TABLET PO SCH (11:12)
[2016-07-09] MEDS: CALCIUM CARBONATE (1250) 500 MG TABLET PO SCH ×2 (11:12→13:00)
[2016-07-09] MEDS: PANTOPRAZOLE 40 MG TABLET.DR PO SCH (11:12)
[2016-07-09] MEDS: TAMSULOSIN 0.4 MG CAP.SR.24H PO SCH (11:12)
[2016-07-09] MEDS: ALLOPURINOL 100 MG TABLET PO SCH ×2 (11:13→13:00)
[2016-07-09] MEDS: NYSTATIN TOP POWDER 15 GM BOTTLE TP SCH (11:19)
[2016-07-09] MEDS ORDERED: HYDR500C PO (13:08)
--- NOTE | 2016-07-09 14:00 | NUR ---
DC PHOTOS TAKEN.
--- NOTE | 2016-07-09 15:00 | NUR ---
hep lock out.dc instructions given,along with belonging sheet. rx given as well and faxed to pt,s pharm.taken in w/c to lobby accompanied by dtr. and digital marketing officer.
[2016-07-11] MEDS ORDERED: ALENDRONATE 70 MG TABLET PO SCH (07:30)
== END 2016-07-09 15:20 | disposition home or self-care (01) | DRG 193 ==
LOC: ER 20:39 → TELE1 21:39 → MEDSG1 07-05 10:45 → TELE1 07-08 10:29
PROVIDERS: ADMIT Nurse Practitioner Acute Care; ATTEND Nurse Practitioner Acute Care
DX: J15.9 Unspecified bacterial pneumonia (principal); G93.40 Encephalopathy, unspecified; I50.33 Acute on chronic diastolic (congestive) heart failure; J96.01 Acute respiratory failure with hypoxia; D65 Disseminated intravascular coagulation [defibrination syndrome]; G93.6 Cerebral edema; N17.0 Acute kidney failure with tubular necrosis; C95.90 Leukemia, unspecified not having achieved remission; E87.1 Hypo-osmolality and hyponatremia; I13.0 Hypertensive heart and chronic kidney disease with heart failure and stage 1 through stage 4 chronic kidney disease, or unspecified chronic kidney disease; C90.00 Multiple myeloma not having achieved remission; I25.10 Atherosclerotic heart disease of native coronary artery without angina pectoris; E78.5 Hyperlipidemia, unspecified; Z95.5 Presence of coronary angioplasty implant and graft; N40.0 Benign prostatic hyperplasia without lower urinary tract symptoms; N18.9 Chronic kidney disease, unspecified; Z95.0 Presence of cardiac pacemaker; K21.9 Gastro-esophageal reflux disease without esophagitis; E78.1 Pure hyperglyceridemia; E11.22 Type 2 diabetes mellitus with diabetic chronic kidney disease; Z87.891 Personal history of nicotine dependence; D50.9 Iron deficiency anemia, unspecified; D69.59 Other secondary thrombocytopenia; D32.9 Benign neoplasm of meninges, unspecified; E86.1 Hypovolemia; I25.2 Old myocardial infarction
CPT/HCPCS: 36415; 70450-TC; 71010-TC; 76770-TC; 77075-TC; 80048-TC; 80053-TC; 80061-TC; 80076-TC; 81000-TC; 82570-TC; 82728-TC; 82746; 82784; 82962-TC; 83540-TC; 83605-TC; 83615-TC; 83735-TC; 83880; 84100-TC; 84155; 84155-TC; 84165; 84300-TC; 84439-TC; 84443-TC; 84484-TC; 84550-TC; 85025-TC; 85396; 85730-TC; 86140-TC; 86334; 86431-TC; 87040-TC; 87081-TC; 87086-TC; 93307-TC; A4216; A4606; J1815; J2405; J2543; J3370; J3490; J7030; J7050; J7060; Z7610